=== PATIENT | female | born 1955 ===

== ENCOUNTER 2018-09-02 07:16 | Outpatient (CLI) | payer OTHER | END 2018-09-02 13:42 | disposition home or self-care (01) | LOC: SONOGRAMA 07:16 | DX: E04.1 Nontoxic single thyroid nodule (principal) ==

== ENCOUNTER 2024-03-24 10:48 | Outpatient (CLI) | payer OTHER | END 2024-03-24 10:52 | disposition home or self-care (01) | LOC: SONOGRAMA 10:48 | PROVIDERS: ATTEND Pathology Anatomic Pathology & Clinical Pathology | DX: D44.0 Neoplasm of uncertain behavior of thyroid gland (principal); E04.1 Nontoxic single thyroid nodule ==